=== PATIENT | male | born 1965 | race Caucasian/White ===

== ENCOUNTER → 2018-06-06 | Outpatient (REF) | payer OTHER ==
[2018-06-06 12:17] LABS: CHOLESTEROL LEVEL 167 MG/DL (<200); CHOLESTEROL RISK RATIO 3.036 (<5); GLUCOSE, FASTING 80 MG/DL (70-100); HDL CHOLESTEROL 55 MG/DL (>40); LDL CHOLESTEROL 103.4 MG/DL (<100); NON-HDL-C 112 MG/DL; TRIGLYCERIDES LEVEL 43 MG/DL (<150)
== END ==
LOC: M LABDRAW1 08:26
DX: Z00.00 Encounter for general adult medical examination without abnormal findings (principal)
CPT/HCPCS: 82947

== ENCOUNTER → 2018-06-29 | Outpatient (CLI) | payer BC, OTHER | LOC: M RAD 08:29 | DX: J32.0 Chronic maxillary sinusitis (principal) | CPT/HCPCS: 70486 ==

== ENCOUNTER 2018-08-10 09:04 | Day surgery (SDC) | payer BC, OTHER ==
[2018-08-10] MEDS: NS 1,000 ML IV (09:18)
[2018-08-10] MEDS ORDERED: LIDOCAINE 2% INJ 100 MG/5 ML SDV (FOR ANES.) As Ordered (09:25)
[2018-08-10] MEDS ORDERED: PROPOFOL 200 MG/20 ML VIAL As Ordered ×2 (09:25)
== END 2018-08-10 11:08 | disposition home or self-care (01) ==
LOC: M OPP 09:04
DX: Z12.11 Encounter for screening for malignant neoplasm of colon (principal); K64.0 First degree hemorrhoids; R12 Heartburn; K44.9 Diaphragmatic hernia without obstruction or gangrene; K31.89 Other diseases of stomach and duodenum; K21.9 Gastro-esophageal reflux disease without esophagitis; Z88.0 Allergy status to penicillin; Z80.0 Family history of malignant neoplasm of digestive organs
CPT/HCPCS: G0121

== ENCOUNTER → 2019-11-14 | Outpatient (REF) | payer OTHER ==
[~2019-11-14] MED LIST: CALC500T49 PO; MULT1TAB10 PO; VITA100067 PO
[2019-11-14 13:51] LABS: ALBUMIN 4.1 GM/DL (3.2-5.2); ALT/SGPT 37 U/L (12-78); BILIRUBIN,TOTAL 0.8 MG/DL (0.2-1.0); BLOOD UREA NITROGEN 21 MG/DL (7-18); CALCIUM LEVEL 9.1 MG/DL (8.5-10.1); CARBON DIOXIDE LEVEL 30 MEQ/L (21-32); CHLORIDE LEVEL 105 MEQ/L (98-107); CHOLESTEROL LEVEL 191 MG/DL (<200); CHOLESTEROL RISK RATIO 4.063 (<5); CREATININE FOR GFR 0.94 MG/DL (0.70-1.30); GLOMERULAR FILTRATION RATE > 60.0 (>56); GLUCOSE, FASTING 86 MG/DL (70-100); HDL CHOLESTEROL 47 MG/DL (>40); LDL CHOLESTEROL 126 MG/DL (<100); NON-HDL-C 144 MG/DL; SODIUM LEVEL 140 MEQ/L (136-145); TOTAL PROTEIN 7.1 GM/DL (6.4-8.2); TRIGLYCERIDES LEVEL 92 MG/DL (<150)
== END ==
LOC: M LABDRAW1 12:11
PROVIDERS: ATTEND Physician Assistant Medical
DX: E78.2 Mixed hyperlipidemia (principal)

== ENCOUNTER → 2020-11-19 | Outpatient (REF) | payer OTHER | LOC: M LAB REF 17:23 | PROVIDERS: ATTEND Physician Assistant | DX: L57.0 Actinic keratosis (principal) ==

== ENCOUNTER → 2023-03-03 | Outpatient (CLI) | payer BC, OTHER | LOC: M RAD 13:32 | PROVIDERS: ATTEND Registered Nurse | DX: N50.811 Right testicular pain (principal) ==

== ENCOUNTER → 2023-05-27 | Outpatient (CLI) | payer BC, OTHER | LOC: M RAD 11:01 | PROVIDERS: ATTEND Physician Assistant | DX: R93.89 Abnormal findings on diagnostic imaging of other specified body structures (principal) ==

== ENCOUNTER 2023-11-22 12:40 | Day surgery (SDC) | payer BC, OTHER ==
[~2023-11-22] VITALS: Ht 175.3 cm; Wt 68.0 kg
[~2023-11-22 12:40] MED LIST changes: +B-12100010 PO; +LEVOTAB10 PO; +NS 1,000 ML IV ONE; +OMEP40CA5 PO; +OYST1TAB PO; +THERTAB52 PO; +VITA100093 PO; +VITA500C24 PO
[2023-11-22] MEDS ORDERED: fentaNYL 100 MCG/2 ML INJECTION As Ordered ONE (13:04)
[2023-11-22 13:24] VITALS: TEMP 96.7
[2023-11-22 13:40] VITALS: BP 107/67; O2SAT 95
== END 2023-11-22 13:47 | disposition home or self-care (01) ==
LOC: M OPP 12:40
PROVIDERS: ATTEND Internal Medicine Gastroenterology
DX: K22.89 Other specified disease of esophagus (principal); K44.9 Diaphragmatic hernia without obstruction or gangrene; Z79.899 Other long term (current) drug therapy; Z88.0 Allergy status to penicillin
CPT/HCPCS: 43239; 88305; J3010

== ENCOUNTER 2023-12-28 09:41 | Day surgery (SDC) | payer BC, OTHER ==
[~2023-12-28] VITALS: Ht 175.3 cm; Wt 68.5 kg
[~2023-12-28 09:41] MED LIST changes: -NS 1,000 ML IV ONE
[2023-12-28] MEDS: PROPARACAINE 0.5% OPHTH SOL 15ML OD ONE (10:04)
[2023-12-28] MEDS: PHENYLEPHRINE 2.5% OPHTH SOL 2ML OD SCH (10:05)
[2023-12-28] MEDS: TROPICAMIDE 1% OPHTH SOLN 15ML OD SCH (10:05)
[2023-12-28] MEDS: ATROPINE SULFATE 1% OPHTH SOLN 2ML BTL OD SCH (10:05)
[2023-12-28] MEDS: OFLOXACIN 0.3 % (OCUFLOX) OPTH SOL 5ML OD SCH (10:05)
[2023-12-28] MEDS ORDERED: MIDAZOLAM INJ 2MG/2ML VIAL As Ordered ONE (10:55)
[2023-12-28] MEDS ORDERED: fentaNYL 100 MCG/2 ML INJECTION As Ordered ONE (10:55)
[2023-12-28] MEDS: MOXIFLOXACIN 0.6MG/0.4ML INTRAOCULAR SYRINGE As Ordered ONE (10:59)
[2023-12-28] MEDS: LIDOCAINE 1% SDV 5ML VIAL As Ordered ONE (10:59)
[2023-12-28] MEDS: BSS IRR 500ML/OMIDRIA 4ML IRR BAG (OR ONLY) As Ordered ONE (10:59)
[2023-12-28 11:09] VITALS: BP 109/76; TEMP 98; O2SAT 97
== END 2023-12-28 11:35 | disposition home or self-care (01) ==
LOC: M SDC 09:41
PROVIDERS: ATTEND Ophthalmology
DX: H25.11 Age-related nuclear cataract, right eye (principal); K21.9 Gastro-esophageal reflux disease without esophagitis; Z79.899 Other long term (current) drug therapy; Z88.0 Allergy status to penicillin
CPT/HCPCS: 66984; J1097; J2250; J3010; V2632